=== PATIENT | female | born 1990 | race Caucasian/White ===

== ENCOUNTER 2018-05-10 13:44 | Observation (INO) | payer SELFPAY ==
[2018-05-10 14:12] LABS: ABS Basophils 0 10^3/ul (0-0.2); ABS Eosinophils 0 10^3/ul (0-0.6); ABS Lymphocytes 1.1 10^3/ul (1.0-4.8); ABS Monocytes 0.5 10^3/ul (0-0.8); ABS Neutrophils 5.5 10^3/ul (1.5-7.7); ABS Nucleated RBC 0 10^3/ul; Eosinophil % 0.2 % (0-6); Hematocrit 38 % (35-47); Hemoglobin 13.2 g/dl (12.0-16.0); Lymphocyte % 15.6 % (25-47); Mean Corpuscular HGB Conc 34 g/dl (31-36); Mean Corpuscular Hemoglobin 32 pg (27-31); Mean Corpuscular Volume 94 fL (80-97); Mean Platelet Volume 7.5 um3 (7.4-10.4); Nucleated Red Blood Cells % 0; Platelet Count 291 10^3/ul (150-450); Red Blood Count 4.09 10^6/ul (4.00-5.40); Red Cell Distribution Width 12 % (10.5-15); White Blood Count 7.2 10^3/ul (3.5-10.8)
[2018-05-10 14:25] LABS: INR 1.17 (0.77-1.02)
[2018-05-10 14:37] LABS: EGFR Non-African American 97.2 (>60)
[2018-05-10 14:59] LABS: Urine Appearance Cloudy; Urine Blood Negative (Negative); Urine Color Yellow; Urine Ketones Negative (Negative); Urine Protein Negative (Negative); Urine Specific Gravity 1.006 (1.010-1.030); Urine Urobilinogen Negative (Negative)
[2018-05-10] MEDS ORDERED: oxyCODONE TAB* 5 MG TAB PO ONE ×2 (16:14→18:10)
[2018-05-10] MEDS ORDERED: levETIRAcetam IV* 500 MG in NS 0.9% 100 ML* 100 ML IVPB ONE (18:02)
--- NOTE | 2018-05-10 18:26 | CONS ---
NEUROLOGY CONSULTATION: DATE OF CONSULT: 05/10/18 LOCATION: She is in the emergency room. REFERRING PHYSICIAN: Dr. Contreras. CHIEF COMPLAINT: Seizures. HISTORY OF PRESENT ILLNESS: Meri Villareal is a 28-year-old woman who was brought to the emergency room by ambulance because of recurrent convulsive activity. She apparently received at least 2 if not 3 doses of Versed in the field. She said she had 4 seizures at her friend's house who she is visiting, perhaps 3 to 4 in the ambulance, another 4 more here in the emergency room. She is described as having some stiffening and then rapid recovery. She is able to respond during the episodes. She reports that she started with seizures when she was about 13 and was evaluated in [place]. She said EEGs were normal and she was not put on antiseizure medicine. She said she did not have any until about when she was 18 years of age and then it happened again. She said all of her episodes have been triggered by flare-ups of her interstitial cystitis. She did not have any for 10 years until yesterday. She is visiting her friend because she is alone at home in [place], [place] because her is traveling for work as a conley. She said she did not feel safe at home and so she went to her friend's house. She forgot to bring her Percocet and Valium, which she takes usually every day. She says she uses Valium intravaginally by recommendation of her urologist, who is in [place]. She takes oxycodone twice per day reliably and is prescribed by her primary care physician for her interstitial cystitis. She gets bladder dilations and is not due for one for 4 months. She has chronic incontinence and wears Depends. She said she has had a flare-up of her cystitis leading to the seizures and that is why she is here. PAST MEDICAL HISTORY: Apparently notable only for the cystitis. We have no prior records as she has never been in this hospital and does not get medical care in this area. MEDICATIONS AT HOME: 1. Oxycodone/APAP 7.5/500 b.i.d. 2. Diazepam 5 mg tabs, which she says she takes intravaginally. She says she took an antibiotic that she had at home because of the flare-up, which I believe was Keflex. She has not had any urinalysis done recently. ALLERGIES: She does not have any allergies. FAMILY HISTORY: Notable for her father having seizures leading to the diagnosis of a brain tumor, which was removed. He has not had seizures since. There is no other family history of epilepsy. SOCIAL HISTORY: As described above. She says her is on his way to the hospital today. REVIEW OF SYSTEMS: Notable for increased pelvic burning. No fevers or chills. Weight has been stable. PHYSICAL EXAM: She is thin, but not undernourished. She is well hydrated. Temperature 98.4, blood pressure is running about 110 to 120 systolic over 70 to 80 diastolic. Heart rate is in the 80s and irregular, respiratory rate 16 and oxygen saturation is 100% on room air. Heart is in a regular rhythm without murmurs. Neck is supple. There are no cervical bruits. Oral mucosa is moist and atraumatic. Neurological Exam: Pupils are fairly large at about 6 mm on the right and 7 mm on the left constricting to about 3 mm on the right and 4 mm on the left. Funduscopic exam is normal with sharp discs and venous pulsation seen bilaterally. Visual man are full to confrontation. Facial musculature is symmetric. Palate and tongue appear normal and there is no dysarthria. Facial sensation is reported as diminished to light touch in the left cheek and diminished to light touch in the right forehead. Facial sensation to temperature is reported as symmetric. Sensation to light touch and vibratory sensation is normal in the distal upper and lower extremities. There is normal muscle tone and strength in the limbs proximally and distally. There is no drift of any limb. Reflexes are present and symmetric. Plantar responses are flexor bilaterally. She is alert and oriented and calm. Memory is intact and language is fluent. She has normal attention, concentration and adequate fund of knowledge. DIAGNOSTIC STUDIES/LAB DATA: Includes a urinalysis with appearance of cloudy, trace leukocyte esterase, trace urine white blood cells, positive squamous epithelial cells, negative for bacteria. Toxicology screen is positive for benzodiazepines, but negative for opioids. Chemistry profile is notable for a borderline low magnesium at 1.7 and low TSH at 0.14. CBC is normal. 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 She has had numerous episodes with rapid recovery and did not respond to Versed. She says the only thing has worked in the past was when she was given intravenous Ativan in [place]. She has gone 10 years without episodes and left to visit a friend because she did not feel safe in her home with her gone. Currently, she is coherent and not having any episodes. She has not been able to get her oxycodone for 2 days as she forgot to bring it with her and so, hopefully, if we just treat her pelvic pain with oxycodone, things will settle down for her and she will stop having the convulsive-like activity. If she continues to have it, then I will arrange for EEG monitoring, but her history and presentation did not suggest an epileptic condition. Frontal lobe seizures are remote possibility, but again, she seems to be able to function and is cognizant during the episodes, so it seems very unlikely. Also, she went 10 years without any episodes whatsoever further making a seizure disorder not at all likely in my opinion. I have discussed the case with Dr. Contreras. If she does not stop having episodes and requires admission, then I will probably arrange for EEG monitoring unless her initial EEG shows abnormalities. [id number]/[facility] #: [id number] GONZALEZ
[2018-05-10] MEDS ORDERED: Magnesium Sulfate 2 GM IV* 2 GM/50 ML BAG IVPB ONE (19:35)
[2018-05-10] MEDS: oxyCODONE TAB* 5 MG TAB PO PRN (20:49)
--- NOTE | 2018-05-10 21:47 | HP ---
CC: Dr. Philip Gorman; Dr. James * HISTORY AND PHYSICAL: DATE OF ADMISSION: 05/10/18 PRIMARY CARE PROVIDER: Dr. Philip Gorman. CHIEF COMPLAINT: Seizures. HISTORY OF PRESENT ILLNESS: Ms. Villareal is a 28-year-old female with a history of interstitial cystitis, she states multiple urethral dilatations, and multiple UTIs in the past, who presented to the hospital complaining of seizures. The patient is a very nonspecific historian, who changes and unfortunately the onset of the seizures. At one point, the patient told me that she started seizing 5 days ago overall, but her sister, who is in the room corrected her that the patient had been seizing for 3 weeks. The patient stated that the seizures originally occurred at work. She stated that she had been on her usual medications at this point and she stopped taking her narcotics 4 to 5 days ago. She stated that she stopped taking her narcotics because she did not want to be addicted to drugs, but on the other hand, she stated that she is not addicted to opioid medications that she takes routinely. The patient also eventually reported that she was hospitalized at [facility] in [place], [place] and discharged yesterday. She was discharged to home, but she came into her sister's as she was afraid of getting a seizure again. With her sister, she had 5 seizures today. A Couple of them were witnessed by the ER providers and appeared to be pseudoseizures from the nurse's report and provider's report. Dr. 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 The patient is going to be placed on overnight observation. She requested to be admitted. She is not safe of going home. Further during the evaluation of the patient, it was noted that the patient's has not "gone away for a while" as initially reported, but the patient is . She plans to move to the [facility] to live with her older sister. 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 The patient also stated that she has not been using narcotics routinely and she uses them only when she needs it occasionally. When discussing the patient's I - STOP results, the patient had been prescribed routinely narcotics, oxycodone with acetaminophen 7.5/325 mg twice a day for at least 1 year now and the last prescription was filled on 04/19/18. At this point, the patient stated that she did take it routinely on a twice a day basis up to 5 days ago when she decided to stop it. The patient is going to be placed on overnight observation for continuous EEG monitoring in the intensive care unit to rule out or rule in epileptic seizures. The patient stated that her urologist is supposed to do urethral dilatation every 2 months, but refused to do it for the patient and he does it "only every 4 months." The patient stated that she uses narcotics for her interstitial cystitis problem that had not caused her pain for the past several days. She has described severe frontal headaches for which she took no medications for the past several days, which resolved after the patient was given Keppra and oxycodone in the emergency department. Once again, the patient also stated that she had been using diazepam 5 mg tablets vaginally. As per I-STOP, she filled diazepam prescription on 05/05/18 , seven day supply, and 30 tablets prescribed by her primary care provider, Dr. Gorman. PAST MEDICAL HISTORY: 1. History of chronic interstitial cystitis with I believe what the patient is describing as urethral dilatation for urethral strictures. 2. The patient also had 3 ectopic pregnancies and 2 live deliveries. MEDICATIONS AT HOME: 1. Oxycodone with acetaminophen 7.5/325 mg b.i.d. Once again, the patient stopped taking it 5 days ago. 2. Diazepam 5 mg tablets p.r.n. Please note that the patient has not been using diazepam previously according to I-STOP and had not been prescribed diazepam in the past year apart from the most recent prescription filled just 5 days ago. ALLERGIES: No known drug allergies. FAMILY HISTORY: Father with history of seizures secondary to brain tumor. SOCIAL HISTORY: The patient is currently undergoing divorce and she is planning to move in with her sister, who lives in the area. She did not designate a surrogate. She drinks occasionally and she smokes an occasional cigarette a day. She denies any drug use in her life. 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 REVIEW OF SYSTEMS: Please see history of present illness. All the remaining 12 systems were reviewed with the patient and they were otherwise negative. PHYSICAL EXAMINATION GENERAL: The patient is a very pleasant 28-year-old female, who is in no acute distress. Alert, awake, and oriented x3. VITAL SIGNS: Blood pressure 110/73, heart rate of 75 and regular, respiratory rate 16, oxygen saturation 98% on room air, temperature of 98.1. HEENT: Head: Atraumatic, normocephalic. Eyes: Pupils are equal, reactive to light and accommodation. Oropharynx clear. Mucosa moist. NECK: Supple. No JVD. No bruits bilaterally. RESPIRATORY: Clear to auscultation bilaterally. CARDIOVASCULAR: Regular rate and rhythm. No murmur. ABDOMEN: Soft, nontender. Bowel sounds are present in all 4 quadrants. EXTREMITIES: There is no edema. Pulses +2 bilaterally. There is no clubbing or cyanosis. NEUROLOGIC: Speech clear. Cranial nerves II through XII are grossly intact. Motor strength is 5/5 bilaterally. SKIN: Multiple tattoos noted. No ecchymotic areas or rashes. PSYCHIATRIC EVALUATION: Oriented x3 with no evidence of anxiety or depression. DIAGNOSTIC STUDIES AND LABORATORY DATA: Sodium of 141, potassium 4.0, chloride 109, carbon dioxide 26, BUN 10, creatinine 0.7. Lactic acid of 1.2. Magnesium 1.7. Liver function tests unremarkable. TSH of 0.14. White blood cell count of 7.2, hemoglobin of 13.2, hematocrit of 38, and platelets of 291. Urinalysis with low specific gravity with presence of squamous epithelial cells. Toxicology positive for benzodiazepine. CT of the brain is pending at the time of dictation. ASSESSMENT AND PLAN: 1. New onset seizures versus pseudoseizures. The patient apparently stated that she has had this nonepileptic seizures when as a child. At this point, she is undergoing a significant amount of stress including a divorce. She is going to be placed on overnight observation in the intensive care unit for continuous EEG monitoring. I discussed the case with Dr. James, who recommended continuation of the patient's Keppra that was started in the emergency department. I will also restart the patient's oxycodone on a p.r.n. basis. 2. In regards to the patient's low TSH, I will check free T4 and free T3 to evaluate it further. 3. For her low magnesium, that is going to be replaced intravenously tonight. 4. The patient's code status is full and she has not been able to name a surrogate today. TIME SPENT: Approximately 55 minutes were spent on admission of this patient, more than half of that time was spent [id number] with the patient during the interview and physical exam. [id number]/[facility] #: [id number] MTDD
[2018-05-10] MEDS ORDERED: Morphine VIAL* 4 MG/ML VIAL (1 ml vial) IV ONE (22:02)
[2018-05-11] MEDS: Acetaminophen TAB* 325 MG PO PRN ×3 (01:01→08:47)
[2018-05-11] MEDS ORDERED: NS 0.9% 1000 ML* 1,000 ML IV ONE (02:51)
[2018-05-11] MEDS: oxyCODONE TAB* 5 MG TAB PO PRN (05:05)
[2018-05-11 05:52] LABS: EGFR Non-African American 107.4 (>60)
[2018-05-11] MEDS ORDERED: oxyCODONE TAB* 5 MG TAB PO PRN ×3 (08:57→10:45)
[2018-05-11] MEDS ORDERED: levETIRAcetam TAB* 500 MG PO SCH (09:00)
--- NOTE | 2018-05-11 09:06 | RAD ---
Indication: Seizure. 12 hour follow up. Comparison: No prior exams available on the [facility] PACS for comparison. Technique: Noncontrast CT vertex of skull through foramen magnum. Report: The sulci, ventricles, and basal cisterns are normal for age. Phillips matter white matter differentiation is preserved without evidence for edema. The pineal gland is mildly prominent measuring 0.8 cm maximum dimension remarkable for coarse central and peripheral calcifications. Negative for mass effect. No significant soft tissue mass lesion of the pineal gland evident. No intra or extra axial hemorrhage or fluid collection detected. Unremarkable visualized orbital contents. Unremarkable calvarium and skull base. Unremarkable scalp. The visualized paranasal sinuses and mastoid air spaces are clear. IMPRESSION: #. No acute intracranial process evident. #. The pineal gland is mildly prominent measuring 0.8 cm maximum dimension remarkable for coarse central and peripheral calcifications. Negative for mass effect. No significant soft tissue mass lesion of the pineal gland evident.
[2018-05-11] MEDS ORDERED: Phenazopyridine TAB* 100 MG PO ONE (10:58)
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
[2018-05-11 13:07] VITALS: BP 118/68
[2018-05-11] MEDS ORDERED: Phenazopyridine TAB* 100 MG PO SCH (14:00)
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
--- NOTE | 2018-05-12 15:14 | ED ---
Dominguez Elizalde Tiffany, scribed for Alonso Contreras MD on 05/10/18 at 1353 . Neurological HPI - HPI Summary HPI Summary: 28 year old F BIBA to [facility] complains of increasing seizures since two weeks ago , last seizure was one hour ago. Symptoms aggravated by nothing. Symptoms alleviated by nothing. EMS states that patient was at friend's house today. EMS administered Versed 5mg x 3 times en route. EMS reports patient has tongue bite , loss of urinary continence. Hx seizures 13 years ago, which had subsided on own until recently. Seeing neurology at [place]. - History of Current Complaint Stated Complaint: POSSIBLE SEIZURES Hx Obtained From: EMS Onset/Duration: Started weeks ago - 2, Resolved - last seizure one hour ago Aggravating: Nothing Alleviating: Nothing - Allergy/Home Medications Allergies/Adverse Reactions: Allergies Allergy/AdvReac Type Severity Reaction Status Date / Time No Known Allergies Allergy Verified 05/10/18 16:23 Home Medications: Home Medications Diazepam TAB(*) [Valium TAB(*)] 5 mg PO DAILY 05/10/18 [History Confirmed ] Multivitamins/Minerals TAB* [Theragran/minerals TAB*] 1 tab PO DAILY 05/10/18 [ History Confirmed 05/10/18] PMH/Surg Hx/FS Hx/Imm Hx Previously Healthy: No - hx 4 ectopic pregnancies Endocrine/Hematology History: Denies: Hx Diabetes Cardiovascular History: Denies: Hx Hypertension GI History: Reports: Hx Gastrointestinal Bleed History: Reports: Other Problems/Disorders - cystitis Opthamlomology History: Reports: Other Sensory Impairments - interstitial otitis Neurological History: Reports: Hx Seizures - Surgical History Surgery Procedure, Year, and Place: Breast augmentation. Tubal ligation. cholecystectomy - Family History Known Family History: Positive: Other - father had seizures, which led to brain tumor - Social History Alcohol Use: Occasionally Hx Substance Use: No Substance Use Type: Reports: None Hx Tobacco Use: No Smoking Status (MU): Never Smoked Tobacco Review of Systems Positive: Other - tongue bite Positive: incontinence Neurological: Other - increasing seizures since two weeks ago, last one was one hour ago All Other Systems Reviewed And Are Negative: Yes Physical Exam - Summary Physical Exam Summary: Appearance: The patient is well-nourished in no acute distress and in no acute pain. Skin: The skin is warm and dry and skin color reflects adequate perfusion. HEENT: The head is normocephalic and atraumatic. The pupils are 3-4 and reactive. The conjunctivae are clear and without drainage. Nares are patent and without drainage. Mouth reveals moist mucous membranes and the throat is without erythema and exudate. The external ears are intact. The ear canals are patent and without drainage. The tympanic membranes are intact. Neck: The neck is supple with full range of motion and non-tender. There are no carotid bruits. There is no neck vein distension. Respiratory: Chest is non-tender. Lungs are clear to auscultation and breath sounds are symmetrical and equal. Cardiovascular: Heart is regular rate and rhythm. There is no murmur or rub auscultated. There is no peripheral edema and pulses are symmetrical and equal. Abdomen: The abdomen is soft and non-tender. There are normal bowel sounds heard in all four quadrants and there is no organomegaly palpated. Musculoskeletal: There is no back tenderness noted. Extremities are non-tender with full range of motion. There is good capillary refill. There is no peripheral edema or calf tenderness elicited. Neurological: Patient is alert and oriented to person, place and time. The patient has symmetrical motor strength in all four extremities. Cranial nerves are grossly intact. Deep tendon reflexes are symmetrical and equal in all four extremities. She is awake and cooperative. Psychiatric: The patient has an appropriate affect and does not exhibit any anxiety or depression. Triage Information Reviewed: Yes Vital Signs On Initial Exam: Initial Vitals Temp Pulse Resp BP Pulse Ox 98.4 F 83 16 98/71 98 05/10/18 13:50 05/10/18 13:50 05/10/18 13:50 05/10/18 13:50 05/10/18 13:50 Vital Signs Reviewed: Yes Diagnostics - Vital Signs Vital Signs Temp Pulse Resp BP Pulse Ox 05/10/18 18:35 79 14 100/73 100 05/10/18 18:05 96 20 122/85 100 05/10/18 18:00 93 13 99 05/10/18 17:49 86 15 99/69 100 05/10/18 17:35 72 15 92/63 98 05/10/18 17:05 78 24 106/65 99 05/10/18 17:00 74 20 99 05/10/18 16:35 76 110/78 94 05/10/18 16:05 14 122/68 05/10/18 16:00 18 05/10/18 15:35 19 109/72 05/10/18 15:09 71 9 93 05/10/18 15:05 76 16 121/79 100 05/10/18 15:00 69 24 100 05/10/18 14:35 74 14 112/77 100 05/10/18 14:13 82 13 104/73 99 05/10/18 14:05 87 18 74/58 100 05/10/18 14:00 102 17 100 05/10/18 13:58 85 18 100 05/10/18 13:50 98.4 F 83 16 98/71 98 - Laboratory Lab Results: Lab Results 05/10/18 05/10/18 05/10/18 Range/Units 14:02 14:02 14:02 WBC 7.2 (3.5-10.8) 10^3/ul RBC 4.09 (4.00-5.40) 10^6/ul Hgb 13.2 (12.0-16.0) g/dl Hct 38 (35-47) % MCV 94 (80-97) fL MCH 32 H (27-31) pg MCHC 34 (31-36) g/dl RDW 12 (10.5-15) % Plt Count 291 (150-450) 10^3/ul MPV 7.5 (7.4-10.4) um3 Neut % (Auto) 76.1 (38-83) % Lymph % (Auto) 15.6 L (25-47) % Winkler % (Auto) 7.7 H (0-7) % Eos % (Auto) 0.2 (0-6) % Baso % (Auto) 0.4 (0-2) % Absolute Neuts (auto) 5.5 (1.5-7.7) 10^3/ul Absolute Lymphs (auto) 1.1 (1.0-4.8) 10^3/ul Absolute Monos (auto) 0.5 (0-0.8) 10^3/ul Absolute Eos (auto) 0 (0-0.6) 10^3/ul Absolute Basos (auto) 0 (0-0.2) 10^3/ul Absolute Nucleated RBC 0 10^3/ul Nucleated RBC % 0 INR (Anticoag Therapy) 1.17 H (0.77-1.02) Sodium 141 (135-145) mmol/L Potassium 4.0 (3.5-5.0) mmol/L Chloride 109 (101-111) mmol/L Carbon Dioxide 26 (22-32) mmol/L Anion Gap 6 (2-11) mmol/L BUN 10 (6-24) mg/dL Creatinine 0.72 (0.51-0.95) mg/dL Est GFR ( Amer) 117.6 (>60) Est GFR (Non-Af Amer) 97.2 (>60) BUN/Creatinine Ratio 13.9 (8-20) Glucose 103 H (70-100) mg/dL Lactic Acid (0.5-2.0) mmol/L Calcium 9.2 (8.6-10.3) mg/dL Magnesium 1.7 L (1.9-2.7) mg/dL Total Bilirubin 0.30 (0.2-1.0) mg/dL AST 12 L (13-39) U/L ALT 10 (7-52) U/L Alkaline Phosphatase 58 (34-104) U/L Total Protein 6.5 (6.4-8.9) g/dL Albumin 4.0 (3.2-5.2) g/dL Globulin 2.5 (2-4) g/dL Albumin/Globulin Ratio 1.6 (1-3) TSH 0.14 L (0.34-5.60) mcIU/mL Free T4 0.79 (0.61-1.12) ng/dL Free T3 2.80 (2.5-3.9) pg/mL Beta HCG, Quant < 0.60 mIU/mL Urine Color Urine Appearance Urine pH (5-9) Ur Specific [place] (1.010-1.030) Urine Protein (Negative) Urine Ketones (Negative) Urine Blood (Negative) Urine Nitrate (Negative) Urine Bilirubin (Negative) Urine Urobilinogen (Negative) Ur Leukocyte Esterase (Negative) Urine WBC (Auto) (Absent) Urine RBC (Auto) (Absent) Ur Squamous Epith Cells (Absent) Urine Bacteria (Absent) Urine Glucose (Negative) Urine Opiates Screen (None Detect) Ur Barbiturates Screen (None Detect) Ur Phencyclidine Scrn (None Detect) Ur Amphetamines Screen (None Detect) U Benzodiazepines Scrn (None Detect) Urine Cocaine Screen (None Detect) U Cannabinoids Screen (None Detect) Serum Alcohol < 10 (<10) mg/dL 05/10/18 05/10/18 05/10/18 Range/Units 14:02 14:32 14:32 WBC (3.5-10.8) 10^3/ul RBC (4.00-5.40) 10^6/ul Hgb (12.0-16.0) g/dl Hct (35-47) % MCV (80-97) fL MCH (27-31) pg MCHC (31-36) g/dl RDW (10.5-15) % Plt Count (150-450) 10^3/ul MPV (7.4-10.4) um3 Neut % (Auto) (38-83) % Lymph % (Auto) (25-47) % Winkler % (Auto) (0-7) % Eos % (Auto) (0-6) % Baso % (Auto) (0-2) % Absolute Neuts (auto) (1.5-7.7) 10^3/ul Absolute Lymphs (auto) (1.0-4.8) 10^3/ul Absolute Monos (auto) (0-0.8) 10^3/ul Absolute Eos (auto) (0-0.6) 10^3/ul Absolute Basos (auto) (0-0.2) 10^3/ul Absolute Nucleated RBC 10^3/ul Nucleated RBC % INR (Anticoag Therapy) (0.77-1.02) Sodium (135-145) mmol/L Potassium (3.5-5.0) mmol/L Chloride (101-111) mmol/L Carbon Dioxide (22-32) mmol/L Anion Gap (2-11) mmol/L BUN (6-24) mg/dL Creatinine (0.51-0.95) mg/dL Est GFR ( Amer) (>60) Est GFR (Non-Af Amer) (>60) BUN/Creatinine Ratio (8-20) Glucose (70-100) mg/dL Lactic Acid 1.2 (0.5-2.0) mmol/L Calcium (8.6-10.3) mg/dL Magnesium (1.9-2.7) mg/dL Total Bilirubin (0.2-1.0) mg/dL AST (13-39) U/L ALT (7-52) U/L Alkaline Phosphatase (34-104) U/L Total Protein (6.4-8.9) g/dL Albumin (3.2-5.2) g/dL Globulin (2-4) g/dL Albumin/Globulin Ratio (1-3) TSH (0.34-5.60) mcIU/mL Free T4 (0.61-1.12) ng/dL Free T3 (2.5-3.9) pg/mL Beta HCG, Quant mIU/mL Urine Color Yellow Urine Appearance Cloudy Urine pH 8.0 (5-9) Ur Specific He[place] 1.006 L (1.010-1.030) Urine Protein Negative (Negative) Urine Ketones Negative (Negative) Urine Blood Negative (Negative) Urine Nitrate Negative (Negative) Urine Bilirubin Negative (Negative) Urine Urobilinogen Negative (Negative) Ur Leukocyte Esterase Trace A (Negative) Urine WBC (Auto) Trace(0-5/hpf) (Absent) Urine RBC (Auto) Absent (Absent) Ur Squamous Epith Cells Present A (Absent) Urine Bacteria Absent (Absent) Urine Glucose Negative (Negative) Urine Opiates Screen None detected (None Detect) Ur Barbiturates Screen None detected (None Detect) Ur Phencyclidine Scrn None detected (None Detect) Ur Amphetamines Screen None detected (None Detect) U Benzodiazepines Scrn Presumptive positive A (None Detect) Urine Cocaine Screen None detected (None Detect) U Cannabinoids Screen None detected (None Detect) Serum Alcohol (<10) mg/dL Result Diagrams: 05/10/18 14:02 05/11/18 05:30 Lab Statement: Any lab studies that have been ordered have been reviewed, and results considered in the medical decision making process. Course/Dx - Course Course Of Treatment: Ms. Villareal presented to the emergency department having received 15 mg of Versed in the ambulance for seizure activity. Here she continued to exhibit activity which grossly appeared to be non-epileptic seizure activity. Dr. James was consult and came to the emergency department to evaluate her. She had been without her chronic pain medications for a couple days and was having increased pain and he recommended we try treating her pain to see if this resolved the issue. Did resolve the issue and then recommended admission and further workup including EEG. The hospiitalists were contacted for admission. - Diagnoses Provider Diagnoses: Psychogenic nonepileptic seizure Discharge - Sign-Out/Discharge Documenting (check all that apply): Discharge/Admit/Transfer - Admit - Discharge Plan Condition: Fair Disposition: ADMITTED TO [facility] - Billing Disposition and Condition Condition: FAIR Disposition: Admitted to [facility] The documentation as recorded by the Dominguez gillette Tiffany accurately reflects the service I personally performed and the decisions made by , Alonso Contreras MD.
== END 2018-05-11 14:05 ==
LOC: ED 13:44 → ICU 18:52
PROVIDERS: ADMIT Internal Medicine; ATTEND Internal Medicine
DX: F44.5 Conversion disorder with seizures or convulsions (principal); G89.29 Other chronic pain; N30.10 Interstitial cystitis (chronic) without hematuria; Z79.899 Other long term (current) drug therapy; F17.210 Nicotine dependence, cigarettes, uncomplicated
CPT/HCPCS: 36415; 70450; 80048; 80053; 80307; 80320; 81003; 81015; 83605; 83735; 84439; 84443; 84481; 84702; 85025; 85610; 87077; 87086; 87186; 87641; 95951; 96365; 96375; 99283; A9270-GY; G0378; G0480; J2270; J3475

== ENCOUNTER 2018-05-11 13:30 | Inpatient (IN) | payer SELFPAY ==
[2018-05-11] MEDS ORDERED: Al Hydrox/Mg Hydrox/Simet LIQ* 30 ML UDC PO PRN (14:12)
[2018-05-11] MEDS ORDERED: Acetaminophen TAB* 325 MG PO PRN (14:12)
[2018-05-11] MEDS ORDERED: Morphine INJ* 2 MG/ML 1 ML SYRINGE (TWO MG - NEW SYRINGE VERSION) IM ONE (14:20)
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
[2018-05-11] MEDS: oxyCODONE TAB* 5 MG TAB PO PRN (19:04)
[2018-05-11] MEDS: Phenazopyridine TAB* 100 MG PO SCH (21:07)
[2018-05-11] MEDS: Diazepam TAB(*) 5 MG PO SCH (21:07)
[2018-05-12] MEDS: oxyCODONE TAB* 5 MG TAB PO PRN ×3 (02:35→19:11)
[2018-05-12] MEDS: Phenazopyridine TAB* 100 MG PO SCH ×3 (07:48→20:21)
[2018-05-12] MEDS: Multivitamins/Minerals TAB PO SCH (07:49)
[2018-05-12] MEDS: Diazepam TAB(*) 5 MG PO SCH ×2 (08:39→20:21)
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
[2018-05-12 12:58] LABS: Urine Appearance Clear; Urine Blood 2+ (Negative); Urine Color Amber; Urine Ketones Negative (Negative); Urine Protein Negative (Negative); Urine Specific Gravity 1.006 (1.010-1.030); Urine Urobilinogen Negative (Negative)
[2018-05-12] MEDS ORDERED: chlorproMAZINE TAB* 50 MG PO ONE (22:20)
[2018-05-12] MEDS ORDERED: chlorproMAZINE TAB* 50 MG ONE (22:22)
[2018-05-13] MEDS: Diazepam TAB(*) 5 MG PO SCH (09:53)
[2018-05-13] MEDS: Phenazopyridine TAB* 100 MG PO SCH (09:53)
[2018-05-13] MEDS: Multivitamins/Minerals TAB PO SCH (09:57)
[2018-05-13] MEDS: oxyCODONE TAB* 5 MG TAB PO PRN (09:57)
[2018-05-13 11:35] VITALS: BP 85/62
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
== END 2018-05-13 13:10 | disposition home or self-care (01) | DRG 880 ==
LOC: BSU 14:05
PROVIDERS: ADMIT Psychiatry & Neurology Psychiatry; ATTEND Psychiatry & Neurology Psychiatry
DX: F44.5 Conversion disorder with seizures or convulsions (principal); N11.9 Chronic tubulo-interstitial nephritis, unspecified; F32.2 Major depressive disorder, single episode, severe without psychotic features; G89.29 Other chronic pain; Z62.810 Personal history of physical and sexual abuse in childhood; Z91.81 History of falling; Z81.8 Family history of other mental and behavioral disorders; Z81.3 Family history of other psychoactive substance abuse and dependence; Z87.820 Personal history of traumatic brain injury
CPT/HCPCS: 36415; 80061; 81003; 81015; 83036; 87077; 87086; 87186; 99222; 99231; 99238; A9270-GY; J2270